=== PATIENT | male | born 1985 | race Caucasian/White ===

== ENCOUNTER 2024-05-28 06:58 | Outpatient (OUT) | payer BC, SELFPAY ==
--- NOTE | 2024-05-28 07:07 | US_ITS ---
[address] [address] Patient Name: MAG BERNAL MRN: [id number] date: 1985 Sex: M Assigned Patient Location: US Current Patient Location: US Accession/Order Number: [id number] Exam Date: 05/28/2024 07:08 Report Date: 05/28/2024 08:07 At the request of: MIGUEL GUNN Procedure: US renal bladder EXAMINATION: US renal bladder HISTORY: Hematuria R31.9 COMPARISON: No relevant comparison available. TECHNIQUE: Ultrasound examination was performed of the bladder. FINDINGS: Right Kidney: Normal in size, contour and cortical echotexture. The cortex measures 1.3 cm. No solid cortical mass, hydronephrosis or obstructing nephrolithiasis Height: 5.76 cm Length: 11.94 cm Width: 5.20 cm Left Kidney: Normal in size, contour and cortical echotexture. The cortex measures 1.6 cm. No solid cortical mass, hydronephrosis or obstructing nephrolithiasis. Height: 5.01 cm Length: 12.16 cm Width: 5.00 cm Urinary bladder: Prevoid volume 702 mL. Post void volume 31 mL. Ureteral jets: Visualized bilaterally US/US renal bladder IMPRESSION: No explanation for the patient's hematuria Electronically authenticated by: BLANE HARYR Date: 05/28/2024 08:07
--- NOTE | 2024-05-28 07:08 | XR_ITS ---
The [address] [address] Patient Name: MAG BERNAL MRN: [id number] date: 1985 Sex: M Assigned Patient Location: US Current Patient Location: US Accession/Order Number: [id number] Exam Date: 05/28/2024 07:25 Report Date: 05/28/2024 08:38 At the request of: MIGUEL GUNN Procedure: XR cervical spine 2-3V EXAMINATION: XR cervical spine 2-3V HISTORY: Cervical pain M54.2 COMPARISON: No relevant comparison available. FINDINGS: BONES: Normal. No significant spondylosis, scoliosis, fracture, or visible bony lesion. DISC SPACES: Normal. No significant disc height narrowing, subluxation, or endplate abnormality. PARASPINOUS: Negative. No paraspinous abnormality is seen. OTHER: Negative. XR/XR cervical spine 2-3V IMPRESSION: No acute radiographic abnormality Electronically authenticated by: LBANE HARRY Date: 05/28/2024 08:38
[2024-05-28 07:58] LABS: Bilirubin Urine NEGATIVE (NEGATIVE); Blood Urine TRACE-I (NEGATIVE); Clarity Urine CLEAR (CLEAR); Color Urine LT. YELLOW (YELLOW); Glucose Urine UA NEGATIVE (NEGATIVE); Ketones Urine NEGATIVE (NEGATIVE); Leukocyte Esterase Urine NEGATIVE (NEGATIVE); Nitrite Urine NEGATIVE (NEGATIVE); Protein Urine NEGATIVE (NEG/TRACE); Specific Gravity Urine <=1.005 (1.005-1.025); Urobilinogen Urine 0.2 EU/dL (0.2-1.0); pH Urine 6.5 (5.0-9.0)
[2024-05-28 07:58] LABS: Basophils Absolute Auto 0.1 10^3/uL (0.0-0.1); Basophils Percent Auto 0.9 % (0.2-2.0); Eosinophils Absolute Auto 0.4 10^3/uL (0.0-0.7); Eosinophils Percent Auto 5.6 % (0.9-7.0); Immature Granulocytes Pct Auto 1.3 % (0.0-0.5); Lymphocytes Absolute Auto 1.9 10^3/uL (1.2-3.8); Lymphocytes Percent Auto 23.6 % (20.5-60.0); Mean Corpuscular HGB Conc 34.1 g/dL (29.9-35.2); Mean Corpuscular Hemoglobin 29.8 pg (25.9-34.0); Mean Corpuscular Volume 87.5 fL (80.0-94.0); Mean Platelet Volume 9.5 fL (9.5-13.5); Monocytes Absolute Auto 0.9 10^3/uL (0.3-0.8); Monocytes Percent Auto 11.1 % (1.7-12.0); Neutrophils Absolute Auto 4.6 10^3/uL (1.4-6.5); Neutrophils Percent Auto 57.5 % (43.0-75.0); Platelet Count 221 10^3/uL (150-450); Red Blood Count 5.03 10^6/uL (4.70-6.10); Red Cell Distribution Width 12.3 % (11.0-15.0); White Blood Count 7.9 10^3/uL (4.0-11.0)
[2024-05-28 08:09] LABS: Estimated Average Glucose 97 mg/dL
[2024-05-28 08:23] LABS: Bacteria Urine NONE SEEN #/HPF (NONE SEEN); Crystals Seen? None Seen #/HPF (None Seen); Mucus Urine NONE SEEN (NONE SEEN); RBC Urine 0-2 #/HPF (0-2); Squamous Epithelial Cell Urine RARE #/LPF (NONE/RARE); WBC Urine NONE SEEN #/HPF (NONE SEEN)
[2024-05-28 08:24] LABS: Cast Seen? NONE SEEN #/LPF (NONE SEEN); Urine Culture Indicated ALREADY ORDERED
[2024-05-28 09:07] LABS: Alanine Aminotransferase 28 U/L (16-63); Albumin Level 3.6 g/dL (3.4-5.0); Alkaline Phosphatase 49 U/L (46-116); Anion Gap 11.3; Aspartate Amino Transferase 9 U/L (15-37); Bilirubin Total 0.3 mg/dL (0.2-1.0); Calcium 8.5 mg/dL (8.5-10.1); Carbon Dioxide 29.6 mmol/L (21.0-32.0); Chloride 103 mmol/L (98-107); Chol HDL Ratio 4.2; Cholesterol 202 mg/dL (<=200); Estimated GFR (African America >60 (>=60); Estimated GFR (Non-African Ame >60 (>=60); Globulin 3.5 g/dL; Glucose 90 mg/dL (74-106); HDL Cholesterol 48 mg/dL (40-60); Potassium 3.9 mmol/L (3.5-5.1); Sodium 140 mmol/L (136-145); Total Protein 7.1 g/dL (6.4-8.2); Triglycerides 193 mg/dL (<=150); VLDL CHOLESTEROL 38.6 mg/dL
== END 2024-05-28 06:59 | disposition home or self-care (01) ==
LOC: US 07:02
PROVIDERS: PCP Family Medicine; Visit Provider Family Medicine
DX: Z00.00 Encounter for general adult medical examination without abnormal findings (principal); R31.9 Hematuria, unspecified; M54.2 Cervicalgia
CPT/HCPCS: 36415; 72040; 76770; 80053; 80061; 81001; 83036; 85025; 87086

== ENCOUNTER 2025-04-17 08:56 | Outpatient (OUT) | payer BC, SELFPAY ==
--- OUTSIDE RECORDS SUMMARY | 2024-06-21 09:36 | XMS_ITS ---
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 Name Role Phone Brain Aviles Primary Care Provider Reason For Referral Diagnosis 1 Hematuria (R31.9) Referral Organization [facility] Referring Provider First Name Brain Referring Provider Last Name Stefan Referring Provider [facility] icine Referred Provider Tanmay Villanueva Referred Provider Specialty Urology Referral Priority Routine REASON FOR VISIT blood in urine Encounters Encounter Location Date Provider Diagnosis [facility] [address] [place] [address] 06/21/2024 Brain Winklersharif Hematuria R31.9 Assessments Encounter Date Diagnosis (ICD Code) Assessment Notes Treatment Notes Treatment Clinical Notes Section Notes 06/21/2024 Hematuria (ICD-10 - R31.9) Plan Of Treatment Referrals Referral Date Details 06/21/2024 06/21/2024Tanmay Progress Notes * Tanner BOWEN MDOB: 5 (38 yo M)Acc No.[id number]:06/21/2024 Patient: Gunjan KELLY Tanner Leon :1985 A ge:38 Y S ex:Male Address:[address] [place] [address] Subjective: * Chief Complaints: * B lood in urine * Medical History: * Surgical History: * Hospitalization/Major Diagno stic Procedure: * Medications: Objective: * Vitals: * Physical Examination: Assessment: * Assessment: 1. H ematuria - R31.9 (Primary) Plan: * Treatment: * Procedure Codes: * true * Date: Generated for Cathy spears/Sav/Anais on: 0 04/17/2025 09:01 AM EDT Consultation Request Notes Referral Date Referring Provider Referred Provider Not es 06/21/2024 rBain Aviles Patrick
--- OUTSIDE RECORDS SUMMARY | 2024-08-06 05:45 | XMS_ITS ---
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 Had xrays done already Social History Tobacco Use: Social History Observation Description Date Details (start date - stop date) Never Smoker NA - NA Tobacco Use/Smoking Question Answer Notes Patient is a nonsmoker AUDIT-C (Standard) Question Answer Notes Did you have a drink contain ing alcohol in the past year? Yes How often did you have six o r more drinks on one occasion in the past year? Never (0 point) How many drinks did you have on a typical day when you were drinking in the past year? 1 or 2 drinks (0 point) How often did you have a dri nk containing alcohol in the past year? 2 to 4 times a month (2 points) Points 2 Interpretation Negative Vital Signs Weight 185.4 lbs 08/06/2024 Height 72 in 08/06/2024 Blood pressure systolic 130 mm Hg 08/06/20 24 Blood pressure diastolic 82 mm Hg 024 BMI 25.14 kg/m2 08/06/2024 Encounters Encounter Location Date Provider Diagnosis [facility] [address] [place] [address] 08/06/2024 Brain Aviles Trapezius muscle spa sm M62.838 and Thoracic sprain S23.9XXA Assessments Encounter Date Diagnosis (ICD Code) Assessment Notes Treatment Notes Treatment Clinical Notes Section Notes 08/06/2024 Trapezius muscle spasm (ICD-10 - M62.838) 08/06/2024 Thoracic sprain (ICD-10 - S23.9XXA) Plan Of Treatment Pending Test Test Name Order Date XR SHOULDER RT 2V or > 08/06/2024 XR thoracic spine 3V 08/06/2024 Progress Notes * Tanner BOWEN MDOB: 5 (39 yo M)Acc No.[id number]:08/06/2024 Progress Note Patient: Tanner SELLERS Provider: Nena Aviles ([facility])MD :1985 A ge:39 Y S ex:Male Date:08/06/2024 Address:[facility] [address], [facility], [id number] Check In:09:36 AM ESTCheck O ut:10:35 AM EST Subjective: * Chief Complaints: * 1 . Still having right shoulder pain. Had xrays done already. * HPI: G eneral: R upper back pain - and pain with sitting is wors - standing better. * Active Problem List M62.838 Trapezius muscle spa sm Modified On:03/01/2024W/U Status:confirmed Z00.00 Well adult Modified On:05/21/2024W/U Status:confirmed R31.9 Hematuria Modified On:05/21/2024/U Status:confirmed * Medical History: H erpes zoster, Internal derangement of knee, Lymphadenopathy, Shoulder impingement syndrome.? * Surgical History: A rthroscopic Posterior reconstruction- Dr. Mcdaniel , Vasectomy 02/10/2023, Left knee surgery x2- highschool . * Family History: F ather: alive. M other: alive. S ister(s): alive. S on(s): alive. D aughter(s): alive. 1 sister(s) - healthy. 1 son(s) , 1 daughter(s) - healthy. . * Social History: T obacco Use: T obacco Use/Smoking P atient is a n onsmoker D rug/Alcohol: A HERNÁN-C (Standard) D id you have a drink containing alcohol in the past year? Y es H ow often did you have six or more drinks on one occasion in the past year? N ever (0 point) H ow many drinks did you have on a typical day when you were drinking in the past year? 1 or 2 drinks (0 point) H ow often did you have a drink containing alcohol in the past year? 2 to 4 times a month (2 points) P oints 2 I nterpretation N egative * Medications: N one * Allergies: N .K.D.A. Objective: * Vitals: W t:185.4lbs, Ht: 72 in, BP:130/82mm Hg, BMI:25.14Index, Ht-cm: 182.88 cm, Wt-k.1 kg. * Examination: A bdomen Exam:: P oor rom in R shojler adn + tendenrss midline uper thoracic spine. Assessment: * Assessment: 1. T rapezius muscle spasm - M62.838 (Primary) 2 . T horacic sprain - S23.9XXA Plan: * Treatment: * Preventive Medicine: Screenings/Counseling: B [place] ACTION PLAN Above Normal BMI Follow-up D ietary management education, guidance, and counseling See treatment section of progress note for complete details of management plan. * * Sign off status: Completed Visit Status: C HK (Check Out) true * Provider: Nena Aviles ([facility])MD Date: 0 08/06/2024 Generated for Ildai tory/Sav/eTransmitting on: 0 04/17/2025 09:01 AM EDT History and Physical Notes * HPI (History of Present Illness) Category Sub-Category Detail Notes Category Not es General R upper back pa in - and pain with sitting is wors - standing better Examination Category Sub-Category Detail Notes Category Not es Abdomen Exam: Poor rom in R shojler adn + tendenrss midline uper thoracic spine
--- OUTSIDE RECORDS SUMMARY | 2025-04-08 13:30 | XMS_ITS ---
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, Said he has anxiety and then gets chest tightness and sometimes has SOB few and far between Social History Tobacco Use: Social History Observation Description Date Details (start date - stop date) Never Smoker NA - NA Tobacco Use/Smoking Question Answer Notes Patient is a nonsmoker Problems Problem Type SNOMED Code ICD Code Onset Dates Problem Status W/U Status Risk Notes Problem Anxiety (33229380) Anxiety (F41.9) Active confirmed Vital Signs Weight 188.6 lbs 04/08/2025 Height 72 in 04/08/2025 Blood pressure systolic 132 mm Hg 04/08/20 25 Blood pressure diastolic 86 mm Hg 025 BMI 25.58 kg/m2 04/08/2025 Encounters Encounter Location Date Provider Diagnosis [facility] [address] [place] [address] 04/08/2025 Brain Aviles Well adult Z00.00 an d Anxiety F41.9 Assessments Encounter Date Diagnosis (ICD Code) Assessment Notes Treatment Notes Treatment Clinical Notes Section Notes 04/08/2025 Well adult (ICD-10 - Z00.00) 04/08/2025 Anxiety (ICD-10 - F41.9) off work 2 weeks Plan Of Treatment Treatment Notes Assessment Notes Anxiety off work 2 weeks Pending Test Test Name Order Date HEMOGLOBIN A1C (GLYCO) 04/08/2025 LIPID PANEL (CHOL/TRIG/HDL/LDL) 04/08/20 25 THYROID PANEL (T4/TSH/FREE T3) 5 CMP (COMP MET RAYMUNDO) w/eGFR CKD-EPI 2024 CBC WITH DIFF 04/08/2025 Progress Notes * Tanner BOWEN MDOB: 5 (39 yo M)Acc No.[id number]:04/08/2025 Progress Note Patient: Tanner SELLERS Provider: Nena Aviles ([facility])MD :1985 A ge:39 Y S ex:Male Date:04/08/2025 Address:[facility] [address], [facility], [id number] Check In:05:16 PM ESTCheck O ut:06:31 PM EST Subjective: * Chief Complaints: * A nxiety with work- shut their center down and not sure if that is why its happeningSaid he has anxiety and then gets chest tightness and sometimes has SOB few and far between * HPI: G eneral: anxiety discussed need for couseling. * ROS: E ENT: hearing changes d enies. v isual changes d enies.?non-healing mouth sores d enies. s wollen glands or neck lumps d enies. h oarseness d enies. s ore throat d enies. d ifficulty swallowing d enies. n ose bleeds d enies. n eulogio congestion d enies. e ar ache d enies. e ar discharge?denies. r inging in ears d enies. l ight sensitivity d enies. e ye pain d enies. b lurring d enies. e ye irritation d enies. d ouble vision d enies.?vision loss d enies. G eneral/Constitutional: Sweats: D enies. F atigue d enies. S leep problems d enies. A norexia d enies. M alaise d enies. W eight loss d enies.?Fatigue or Weakness d enies. F ever or Chills d enies. C ardiovascular: Shortness of Breath w/lying flat d enies. L ightheadedness/dizziness d enies. C hest tightness/ heavy pressure d enies. S welling of legs, ankles, or feet d enies. W aking up with shortness of breath d enies. C hest pain denies. P alpitations d enies. W eight gain d enies. R espiratory: Chronic or frequent cough d enies. C oughing up blood?denies. D ifficulty breathing d enies. P roductive cough d enies. S noring?denies. S hortness of breath that awakens from sleep (PND) d enies. C hest pain d enies. S putum production d enies. W heezing d enies. M usculoskeletal: Joint pain d enies. J oint Fluid d enies. B ack pain d enies. K nee pain d enies. N xavi pain d enies. J oint Stiffness d enies. M uscle cramps d enies. W eakness of muscles d enies. A rthritis d enies. M uscle aches d enies. P ain in shoulder(s) d enies. S wollen joints d enies. * Active Problem List M62.838 Trapezius muscle spa sm Modified On:03/01/2024W/U Status:confirmed Z00.00 Well adult Modified On:05/21/2024W/U Status:confirmed R31.9 Hematuria Modified On:05/21/2024/U Status:confirmed F41.9 Anxiety Modified On:04/08/2025W/U Status:confirmed * Medical History: * Surgical History: A rthroscopic Posterior reconstruction- Dr. Mcdaniel Vasectomy 02/10/2023Le knee surgery x2- highschool * Hospitalization/Major Diagno stic Procedure: D enies Past Hospitalization * Family History: F ather: alive. M other: alive. S ister(s): alive. S on(s): alive. D aughter(s): alive. 1 sister(s) - healthy. 1 son(s) , 1 daughter(s) - healthy. . * Social History: T obacco Use: T obacco Use/Smoking P atient is a n onsmoker * Medications: N one * Allergies: N .K.D.A.no[Allergies Verified] Objective: * Vitals: W t:188.6lbs, Ht: 72 in, BP:132/86mm Hg, BMI:25.58Index, Ht-cm: 182.88 cm, Wt-k.55 kg. * Examination: P hysical Exam: GENERAL: w ell developed, well nourished, in no acute distress. HEAD: n ormocephalic/atraumatic. EYES: p upils equal, round and reactive to light, conjunctivae and sclerae normal. EARS: n o deformity or lesion of external ear, canals and TM appear normal bilaterally, TM's intact, not inflamed with normal light reflex, hearing grossly normal to conversational speech. NOSE: n o deformity, discharge, inflammation, or lesions.? MOUTH: m ucous membranes moist, normal oropharynx and posterior pharynx without lesions or exudates, tongue normal, dentition normal. NECK: n xavi supple, no masses or palpable cervical nodes, trachea midline, thyroid without nodules, masses, tenderness, or enlargement. CHEST: n o chest wall deformity, no chest wall tenderness.? LUNGS: n ormal respiratory effort and clear to auscultation, no wheezes, rales, or rhonchi, good air exchange. CARDIO: r egular rate and rhythm, normal S1 and S2, nor murmur, rub, or gallop. PULSES: n ormal capillary refill. ABDOMEN: s oft, non-distended, non-tender, no masses. MUSCULOSKELETAL: n o deformity or scoliosis noted, normal range of motion, joints normal, no erythema, edema, effusion, or ecchymosis. EXTREMITY: n o clubbing, cyanosis, edema, or deformity with normal ROM in both upper and lower bilateral extremities. NEUROLOGIC: g rossly normal. SKIN: n o rashes, ulcerations, or suspicious lesions. LYMPH NODES: n o cervical adenopathy, nodes normal. MENTAL STATUS: a lert and oriented x3, normal mood and affect. Assessment: * Assessment: 1. W ell adult - Z00.00 (Primary) 2 . A nxiety - F41.9 Plan: * Treatment: 2. A nxiety Notes: off work 2 weeks * Procedure Codes: * Preventive Medicine: Screenings/Counseling: B [place] ACTION PLAN Above Normal BMI Follow-up D ietary management education, guidance, and counseling * * Sign off status: Completed Visit Status: C HK (Check Out) true * Provider: Nena LOCKE)MD Date: 0 04/08/2025 Generated for Printi ng/Faxing/eTransmitting on: 0 04/17/2025 09:01 AM EDT History and Physical Notes * HPI (History of Present Illness) Category Sub-Category Detail Notes Category Not es General anxiety discussed need for couseling Examination Category Sub-Category Detail Notes Category Not es Physical Exam GENERAL: well developed, well nourished, in no acute distress HEAD: normocephalic/atraum atic EYES: pupils equal, round and reactive to light, conjunctivae and sclerae normal EARS: no deformity or lesi on of external ear, canals and TM appear normal bilaterally, TM's intact, not inflamed with normal light reflex, hearing grossly normal to conversational speech NOSE: no deformity, discha rge, inflammation, or lesions MOUTH: mucous membranes abelardo st, normal oropharynx and posterior pharynx without lesions or exudates, tongue normal, dentition normal NECK: neck supple, no mass es or palpable cervical nodes, trachea midline, thyroid without nodules, masses, tenderness, or enlargement CHEST: no chest wall deform ity, no chest wall tenderness LUNGS: normal respiratory e ffort and clear to auscultation, no wheezes, rales, or rhonchi, good air exchange CARDIO: regular rate and rhy thm, normal S1 and S2, nor murmur, rub, or gallop PULSES: normal capillary ref ill ABDOMEN: soft, non-distended, non-tender, no masses RECTAL: MUSCULOSKELETAL: no deformity or scol iosis noted, normal range of motion, joints normal, no erythema, edema, effusion, or ecchymosis EXTREMITY: no clubbing, cyanosi s, edema, or deformity with normal ROM in both upper and lower bilateral extremities NEUROLOGIC: grossly normal SKIN: no rashes, ulceratio ns, or suspicious lesions LYMPH NODES: no cervical adenopat hy, nodes normal MENTAL STATUS: alert and oriented x 3, normal mood and affect
--- OUTSIDE RECORDS SUMMARY | 2025-04-17 09:01 | XMS_ITS | Patient Health Record ---
Author Organization [facility] in [place] Address [address] [place] [address] Care Team Providers Care Healthcare Management Name Role Phone Brani Gunn Primary Care Provider Allergies No Known Allergies Results Component Value Reference Range Notes US renal bladder Reviewed date:05/29/2024 03:47:21 PM Interpretation: Performing Lab: Notes/Report: Source Facility: [place] [id number] Ultrasound Report Signed Patient: MAG BOWEN MR#: [id number] : 1985 Acct:[id number] Age/Sex: 38 / M ADM Date: 05/28/24 Loc: US Attending Dr: Miguel Gunn M.D. Ordering Physician: Miguel Gunn M.D. Date of Service: 05/28/24 Procedure(s): US renal bladder Accession Number(s): [id number] cc: Miguel Gunn M.D. [place] [address] Patient Name: MAG BOWEN MRN: [id number] date: 1985 Sex: M Assigned Patient Location: US Current Patient Location: US Accession/Order Number: [id number] Exam Date: 05/28/2024 07:08 Report Date: 05/28/2024 08:07 At the request of: MIGUEL GUNN Procedure: US renal bladder EXAMINATION: US renal bladder HISTORY: Hematuria R31.9 COMPARISON: No relevant comparison available. TECHNIQUE: Ultrasound examination was performed of the bladder. FINDINGS: Right Kidney: Normal in size, contour and cortical echotexture. The cortex measures 1.3 cm. No solid cortical mass, hydronephrosis or obstructing nephrolithiasis Height: 5.76 cm Length: 11.94 cm Width: 5.20 cm Left Kidney: Normal in size, contour and cortical echotexture. The cortex measures 1.6 cm. No solid cortical mass, hydronephrosis or obstructing nephrolithiasis. Height: 5.01 cm Length: 12.16 cm Width: 5.00 cm Urinary bladder: Prevoid volume 702 mL. Post void volume 31 mL. Ureteral jets: Visualized bilaterally US/US renal bladder IMPRESSION: No explanation for the patient's hematuria Electronically authenticated by: BLANE HARRY Date: 05/28/2024 08:07 Dictated By: Blane Harry M.D. Signed By: 05/28/24809 DD/ 6 TD/TT: Collection Systems Worker: [place] [address] Ultrasound Report Signed Patient: KASEY BOWEN MR#: [id number] : 1985 Acct:[id number] Age/Sex: 38 / M ADM Date: 05/28/24 Loc: US Attending Dr: Juhi Gunn M.D. Ordering Physician: Miguel Gunn M.D. Date of Service: 05/28/24 Procedure(s): US martha al bladder Accession Number(s): [id number] cc: Miguel Gunn M.D. [place] [id number] Patient Name: MAG BOWEN MRN: [id number] date: 1985 Sex: M Assigned Patient Location: US Current Patient Location: US Accession/Order Numb er: [id number] Exam Date: 05/28/2024 07:08 Report Date: 05/28/2024 08:07 At the request of: MIGUEL GUNN Procedure: US renal bladder EXAMINATION: US prabha l bladder HISTORY: Hematuria R31.9 COMPARISON: No relev ant comparison available. TECHNIQUE: Ultrasoun d examination was performed of the bladder. FINDINGS: Right Kidney: Normal in size, contour and cortical echotexture. The cortex measures 1.3 cm. No solid cortical mass, hydronephrosis or obstructing nephrolithiasis Height: 5.76 cm Natali th: 11.94 cm Width: 5.20 cm Left Kidney: Normal in size, contour and cortical echotexture. The cortex measures 1.6 cm. No solid cortical mass, hydronephrosis or obstructing nephrolithiasis. Height: 5.01 cm Natali th: 12.16 cm Width: 5.00 cm Urinary bladder: Prevoid volume 702 mL. Post void volume 31 mL. Ureteral jets: Visualized bilaterally US/US renal bladder IMPRESSION: No explanation for t he patient's hematuria Electronically authenticated by: BLANE HARRY Date: 05/28/2024 08:07 Dictated By: Merlin Harry M.D. Signed By: 05/28/24809 DD/ 6 TD/TT: Collection Systems Worker: PROF Arciniega(COMP METB) Reviewed date:05/29/2024 03:47:21 PM Interpretation: Performing Lab: Notes/Report: [facility] , Sodium 140 136-145 mmol/L Potassium 3.9 3.5-5.1 mmol/L Chloride 103 98-107 mmol/L Carbon Dioxide 29.6 21.0-32.0 mmol/L Anion Gap 11.3 Glucose 90 74-106 mg/dL Blood Urea Nitrogen 10.0 7.0-18.0 mg/dL Creatinine 0.91 0.70-1.30 mg/dL Estimated GFR ( Hallie >60 >=60 Estimated GFR (Non- Karlene >60 >=60 BUN Creatinine Ratio 11.0 Calcium 8.5 8.5-10.1 mg/dL Bilirubin Total 0.3 0.2-1.0 mg/dL Aspartate Amino Transferase 9 15-37 U/L Alanine Aminotransferase 28 16-63 U/L Alkaline Phosphatase 49 46-116 U/L Total Protein 7.1 6.4-8.2 g/dL Albumin Level 3.6 3.4-5.0 g/dL Globulin 3.5 Albumin Globulin Ratio 1.0 Performing Lab: see note ML - [facility] LB GLYCOHEMOGLOBIN A1C Reviewed date:05/29/2024 03:47:21 PM Interpretation: Performing Lab: Notes/Report: [facility] , Glycohemoglobin A1C 5.0 4.5-6.2 % ADA THERAPEUTIC TARGET < 7.0 ADA RECOMMENDED LIMIT 4.0 - 6.0 > 7.0 ACTION SUGGESTED Estimated Average Glucose 97 Performing Lab: see note ML - [facility] LB CBC AUTO DIFF Reviewed date:05/29/2024 03:47:21 PM Interpretation: Performing Lab: Notes/Report: [facility] , White Blood Count 7.9 4.0-11.0 10 3/uL Red Blood Count 5.03 4.70-6.10 10 6/uL Hemoglobin 15.0 14.0-18.0 g/dL Hematocrit 44.0 42.0-54.0 % Mean Corpuscular Volume 87.5 80.0-94.0 fL Mean Corpuscular Hemoglobin 29.8 25.9-34.0 pg Mean Corpuscular HGB Conc 34.1 29.9-35.2 g/dL Red Cell Distribution Width 12.3 11.0-15.0 % Platelet Count 221 150-450 10 3/uL Mean Platelet Volume 9.5 9.5-13.5 fL Neutrophils Percent Auto 57.5 43.0-75.0 % Lymphocytes Percent Auto 23.6 20.5-60.0 % Monocytes Percent Auto 11.1 1.7-12.0 % Eosinophils Percent Auto 5.6 0.9-7.0 % Basophils Percent Auto 0.9 0.2-2.0 % Immature Granulocytes Pct Auto 1.3 0.0-0.5 % Neutrophils Absolute Auto 4.6 1.4-6.5 10 3/uL Lymphocytes Absolute Auto 1.9 1.2-3.8 10 3/uL Monocytes Absolute Auto 0.9 0.3-0.8 10 3/uL Eosinophils Absolute Auto 0.4 0.0-0.7 10 3/uL Basophils Absolute Auto 0.1 0.0-0.1 10 3/uL Immature Granulocytes Abs Auto 0.10 0.00-0.03 10 3/uL Performing Lab: see note ML - [facility] LB XR cervical spine 2-3V Reviewed date:05/29/2024 03:47:21 PM Interpretation: Performing Lab: Notes/Report: Source Facility: [place] [address] [place] [address] XRay Report Signed Patient: MAG BOWEN MR#: [id number] : 1985 Acct:[id number] Age/Sex: 38 / M ADM Date: 05/28/24 Loc: US Attending Dr: Miguel Gunn M.D. Ordering Physician: Miguel Gunn M.D. Date of Service: 05/28/24 Procedure(s): XR cervical spine 2-3V Accession Number(s): [id number] cc: Miguel Gunn M.D. [place] [address] Patient Name: MAG BOWEN MRN: [id number] date: 1985 Sex: M Assigned Patient Location: US Current Patient Location: US Accession/Order Number: [id number] Exam Date: 05/28/2024 07:25 Report Date: 05/28/2024 08:38 At the request of: MIGUEL GUNN Procedure: XR cervical spine 2-3V EXAMINATION: XR cervical spine 2-3V HISTORY: Cervical pain M54.2 COMPARISON: No relevant comparison available. FINDINGS: BONES: Normal. No significant spondylosis, scoliosis, fracture, or visible bony lesion. DISC SPACES: Normal. No significant disc height narrowing, subluxation, or endplate abnormality. PARASPINOUS: Negative. No paraspinous abnormality is seen. OTHER: Negative. XR/XR cervical spine 2-3V IMPRESSION: No acute radiographic abnormality Electronically authenticated by: BLANE HARRY Date: 05/28/2024 08:38 Dictated By: Blane Harry M.D. Signed By: 05/28/2441 DD/ 7 TD/TT: Collection Systems Worker: [place] [address] XRay Report Signed Patient: KASEY BOWEN MR#: [id number] : 1985 Acct:[id number] Age/Sex: 38 / M ADM Date: 05/28/24 Loc: US Attending Dr: Juhi Gunn M.D. Ordering Physician: Miguel Gunn M.D. Date of Service: 05/28/24 Procedure(s): XR cervical spine 2-3V Accession Number(s): [id number] cc: Miguel uGnn M.D. [facility] [place] [address] Patient Name: MAG BOWEN MRN: [facility]:[id number] date: 1985 Sex: M Assigned Patient Location: US Current Patient Location: US Accession/Order Numb er: [id number] Exam Date: 05/28/2024 07:25 Report Date: 05/28/2024 08:38 At the request of: MIGUEL GUNN Procedure: XR cervic al spine 2-3V EXAMINATION: XR cervical spine 2-3V HISTORY: Cervical pa in M54.2 COMPARISON: No relev ant comparison available. FINDINGS: BONES: Normal. No significant spondylosis, scoliosis, fracture, or visible bony lesion. DISC SPACES: Normal. No significant disc height narrowing, subluxation, or endplate abnormality. PARASPINOUS: Negativ e. No paraspinous abnormality is seen. OTHER: Negative. XR/XR cervical spine 2-3V IMPRESSION: No acute radiographi c abnormality Electronically authenticated by: BLANE HARRY Date: 05/28/2024 08:38 Dictated By: Merlin Harry M.D. Signed By: 05/28/2441 DD/ 7 TD/TT: Collection Systems Worker: LIPID PROFILE Reviewed date:05/29/2024 03:47:21 PM Interpretation: Performing Lab: Notes/Report: [facility] , Triglycerides 193 <=150 mg/dL Cholesterol 202 <=200 mg/dL HDL Cholesterol 48 40-60 mg/dL > or =60 mg/dl - LOW CARDIOVASCULAR RISK <40 mg/dl - HIGH CARDIOVASCULAR RISK LDL Cholesterol Calculated 116.0 >190 mg/dl VERY HIGH 100-129 mg/dl NEAR OR ABOVE OPTIMAL <100 mg/dl OPTIMAL 130-159 mg/dl BORDERLINE HIGH 160-189 mg/dl HIGH VLDL CHOLESTEROL 38.6 Chol HDL Ratio 4.2 7.1 - 11.0 MODERATE RISK 3.3 - 4.4 LOW RISK >11.0 HIGH RISK 4.4 - 7.1 AVERAGE RISK Performing Lab: see note ML - [facility] LB UA RANDOM W or MICROSCOPIC Reviewed date:05/29/2024 03:47:21 PM Interpretation: Performing Lab: Notes/Report: [facility] , Color Urine LT. YELLOW YELLOW Clarity Urine CLEAR CLEAR Specific [place] Urine <=1.005 1.005-1.025 pH Urine 6.5 5.0-9.0 Protein Urine NEGATIVE NEG/TRACE mg/dL Glucose Urine UA NEGATIVE NEGATIVE mg/dL Bilirubin Urine NEGATIVE NEGATIVE Ketones Urine NEGATIVE NEGATIVE mg/dL Blood Urine TRACE-I NEGATIVE Nitrite Urine NEGATIVE NEGATIVE Urobilinogen Urine 0.2 0.2-1.0 EU/dL Leukocyte Esterase Urine NEGATIVE NEGATIVE WBC Urine NONE SEEN NONE SEEN #/HPF RBC Urine 0-2 0-2 #/HPF Bacteria Urine NONE SEEN NONE SEEN #/HPF Mucus Urine NONE SEEN NONE SEEN Squamous Epithelial Cell Urine RARE NONE/RARE #/LPF Crystals Seen? None Seen None Seen #/HPF Cast Seen? NONE SEEN NONE SEEN #/LPF Urine Culture Indicated ALREADY ORDERED Performing Lab: see note ML - [facility] LB Reason For Referral Diagnosis 1 Hematuria (R31.9) Referral Organization [facility] Referring Provider First Name Brain Referring Provider Last Name Stefan Referring Provider Speciality [facility] amilcar Referred Provider Tanmay Villanueva Referred Provider Specialty Urology Referral Priority Routine Social History Tobacco Use: Social History Observation Description Date Details (start date - stop date) Never Smoker NA - NA Tobacco Use/Smoking Question Answer Notes Patient is a nonsmoker Alcohol Screen (Audit-C) Question Answer Notes Did you have a drink contain ing alcohol in the past year? Yes How often did you have 6 or more drinks on one occasion in the past year? Monthly or less (1 point) How many drinks did you have on a typical day when you were drinking in the past year? 1 or 2 drinks (0 point) How often did you have a dri nk containing alcohol in the past year? Monthly (2 points) Points 3 Interpretation Negative AUDIT-C (Standard) Question Answer Notes Did you [...] month (2 points) Points 2 Interpretation Negative Problems Problem Type SNOMED Code ICD Code Onset Dates Problem Status W/U Status Risk Notes Problem Anxiety (76546521) Anxiety (F41.9) Active confirmed Problem Hematuria (28369063) Hematuria (R31.9) Active confirmed Problem Well adult (467543417) Well adult (Z00.00) Active confirmed Problem Spasm (10802624) Trapezius muscle spasm (M62.838) Active confirmed Vital Signs Blood pressure diastolic 86 mm Hg 04/08/2025 Height 72 in 04/08/2025 Blood pressure systolic 132 mm Hg 04/08/2025 Weight 188.6 lbs 04/08/2025 BMI 25.58 kg/m2 04/08/2025 Encounters Encounter Location Date Provider Diagnosis [facility] [address] [place] [address] 05/29/2024 Brain Hoy [facility] [address] [place] [address] 06/21/2024 Brain Hoy Hematuria R31.9 [place] [address] [place] [address] 05/21/2024 Brain Hoy Well adult Z00.00 an d Hematuria R31.9 [place] [address] [place] [address] 08/06/2024 Brain Hoy Trapezius muscle spa sm M62.838 and Thoracic sprain S23.9XXA [facility] [address] [place] [address] 04/08/2025 Brain Hoy Well adult Z00.00 an d Anxiety F41.9 Assessments Encounter Date Diagnosis (ICD Code) Assessment Notes Treatment Notes Treatment Clinical Notes Section Notes 05/21/2024 Well adult (ICD-10 - Z00.00) 05/21/2024 Hematuria (ICD-10 - R31.9) 08/06/2024 Trapezius muscle spasm (ICD-10 - M62.838) 08/06/2024 Thoracic sprain (ICD-10 - S23.9XXA) 04/08/2025 Well adult (ICD-10 - Z00.00) 04/08/2025 Anxiety (ICD-10 - F41.9) off work 2 weeks 06/21/2024 Hematuria (ICD-10 - R31.9) Plan Of Treatment Pending Test Test Name Order Date HEMOGLOBIN A1C (GLYCO) 04/08/2025 LIPID PANEL (CHOL/TRIG/HDL/LDL) 04/08/20 25 UA (URINALYSIS) W MICRO (75093) - IN OFF ICE 05/21/2024 CULTURE URINE 05/21/2024 XR SHOULDER RT 2V or > 08/06/2024 THYROID PANEL (T4/TSH/FREE T3) 5 XR thoracic spine 3V 08/06/2024 XR cervical spine 2-3V 04/09/2024 Lipid Panel 05/21/2024 CMP (COMP MET RAYMUNDO) w/eGFR CKD-EPI 2024 CBC WITH DIFF 04/08/2025 Insurance Providers Payer Name Payer Address Payer Phone Subscriber Number Group Number Insured Name Patient Relationship to Insured Coverage Start Date Coverage End Date [employer] PPO PLUS LOCAL PLAN [address] [place] [address] [phone] [id number] Mag Bowen Self - patient is the insured Medical (General) History Medical History History ICD Code Herpes zoster B02.9 Internal derangement of knee M23.90 Lymphadenopathy R59.1 Shoulder impingement syndrome M75.40 Surgical History Surgery Date(Month/Year) Arthroscopic Posterior reconstruction- D r. [place] Vasectomy 02/10/2023 Left knee surgery x2- highschool
[2025-04-17 09:19] LABS: Basophils Percent Auto 0.5 % (0.2-2.0); Eosinophils Absolute Auto 0.3 10^3/uL (0.0-0.7); Eosinophils Percent Auto 5.7 % (0.9-7.0); Hematocrit 45.2 % (42.0-54.0); Hemoglobin 15.5 g/dL (14.0-18.0); Immature Granulocytes Abs Auto 0.01 10^3/uL (0.00-0.03); Immature Granulocytes Pct Auto 0.2 % (0.0-0.5); Lymphocytes Absolute Auto 1.4 10^3/uL (1.2-3.8); Lymphocytes Percent Auto 24.4 % (20.5-60.0); Mean Corpuscular HGB Conc 34.3 g/dL (29.9-35.2); Mean Corpuscular Hemoglobin 29.4 pg (25.9-34.0); Mean Corpuscular Volume 85.6 fL (80.0-94.0); Mean Platelet Volume 9.2 fL (9.5-13.5); Monocytes Absolute Auto 0.6 10^3/uL (0.3-0.8); Monocytes Percent Auto 9.9 % (1.7-12.0); Neutrophils Absolute Auto 3.3 10^3/uL (1.4-6.5); Neutrophils Percent Auto 59.3 % (43.0-75.0); Platelet Count 248 10^3/uL (150-450); Red Blood Count 5.28 10^6/uL (4.70-6.10); Red Cell Distribution Width 12.1 % (11.0-15.0); White Blood Count 5.6 10^3/uL (4.0-11.0)
[2025-04-17 09:50] LABS: Estimated Average Glucose 105 mg/dL; Glycohemoglobin A1C 5.3 % (4.5-6.2)
[2025-04-17 09:55] LABS: Alanine Aminotransferase 31 U/L (16-63); Albumin Globulin Ratio 1.1; Albumin Level 3.9 g/dL (3.4-5.0); Alkaline Phosphatase 52 U/L (46-116); Anion Gap 13.4; Aspartate Amino Transferase 20 U/L (15-37); BUN Creatinine Ratio 16.9; Bilirubin Total 1.1 mg/dL (0.2-1.0); Calcium 9.2 mg/dL (8.5-10.1); Carbon Dioxide 28.8 mmol/L (21.0-32.0); Chloride 103 mmol/L (98-107); Cholesterol 209 mg/dL (<=200); Estimated GFR (African America >60 (>=60 mL/min/1.73m^2); Estimated GFR (Non-African Ame >60 (>=60 mL/min/1.73m^2); Free T3 3.23 pg/mL (2.18-3.98); Globulin 3.7 g/dL; Glucose 97 mg/dL (74-106); HDL Cholesterol 52 mg/dL (40-60); Potassium 4.2 mmol/L (3.5-5.1); Sodium 141 mmol/L (136-145); Thyroid Stimulating Hormone 1.623 uIU/mL (0.358-3.740); Total Protein 7.6 g/dL (6.4-8.2); Triglycerides 187 mg/dL (<=150); VLDL CHOLESTEROL 37.4 mg/dL
== END 2025-04-17 08:57 | disposition home or self-care (01) ==
LOC: LAB 08:58
PROVIDERS: PCP Family Medicine; Visit Provider Family Medicine
DX: Z00.00 Encounter for general adult medical examination without abnormal findings (principal)
CPT/HCPCS: 36415; 80053; 80061; 83036; 84436; 84443; 84481; 85025